=== PATIENT | male | born 1980 | race Caucasian/White ===

== ENCOUNTER 2017-03-13 15:23 | Emergency (ER) | payer OTHER ==
--- NOTE | 2017-03-13 16:42 | EDM.PDOC ---
ED HPI GENERAL MEDICAL PROBLEM - General Chief Complaint: Genitourinary Problem Stated Complaint: GROIN PAIN Time Seen by Provider: 03/13/17 15:52 Source of Information: Reports: Patient, RN Notes Reviewed - History of Present Illness INITIAL COMMENTS - FREE TEXT/NARRATIVE: 36-year-old male comes in with left lower abdominal wall discomfort. He's had this for about 10-14 days. Been working out more at the gym recently and believes he could've suffered strain injury with weight lifting and other exercises that he has been doing. The pain does get better with rest and time but then he'll forget and do something in the pain comes back. Been no bulging or herniation. No nausea vomiting. No fever or chills. Groin Pain Score (Numeric/FACES): 0 - Related Data Allergies Allergy/AdvReac Type Severity Reaction Status Date / Time Penicillins Allergy Unknown Hives Verified 03/13/17 15:46 Home Meds: Home Meds . [No Known Home Meds] 03/13/17 [History] Past Medical History - Past Health History Medical/Surgical History: Denies Medical/Surgical History Social & Family History - Tobacco Use Smoking Status *Q: Current Every Day Smoker Years of Tobacco use: 20 Packs/Tins Daily: 0.5 - Recreational Drug Use Recreational Drug Use: No ED ROS GENERAL - Review of Systems Review Of Systems: See Below Constitutional: Denies: Fever, Chills Respiratory: Denies: Shortness of Breath, Pleuritic Chest Pain Cardiovascular: Denies: Chest Pain GI/Abdominal: Reports: Abdominal Pain (Left lower abdominal wall) Musculoskeletal: Denies: Back Pain, Joint Pain Skin: Reports: No Symptoms Neurological: Reports: No Symptoms ED EXAM, GI/ABD - Physical Exam Exam: See Below General Appearance: Alert, No Apparent Distress Head: Atraumatic Neck: Supple Respiratory/Chest: No Respiratory Distress, Lungs Clear, Normal Breath Sounds Cardiovascular: Normal Peripheral Pulses, Regular Rate, Rhythm GI/Abdominal Exam: Tender (Very minimal tenderness left lower abdomen just above the groin, no bulging palpable or visible) (Male) Exam: No Hernia. No: Scrotal Swelling, Scrotum Tenderness (L) Extremities: Normal Inspection, Normal Range of Motion Neurological: Alert, Oriented Skin Exam: Warm, Dry, Normal Color Course - Vital Signs Last Recorded V/S: Last Vital Signs Temp 98.5 F 03/13/17 15:46 Pulse 87 03/13/17 15:46 Resp 16 03/13/17 15:46 BP 114/77 03/13/17 15:46 Pulse Ox 95 03/13/17 15:46 Departure - Departure Time of Disposition: 16:39 Disposition: Home, Self-Care 01 Condition: Fair Clinical Impression: Strain of abdominal wall Qualifiers: Encounter type: initial encounter Qualified Code(s): S39.011A - Strain of muscle, fascia and tendon of abdomen, initial encounter - Discharge Information Instructions: Abdominal Pain, Adult, [id number] Referrals: PCP,None [Primary Care Provider] - Forms: ED Department Discharge Additional Instructions: Avoid heavy lifting or other physical activity that makes pain worse, Advil or ibuprofen 3-4 times daily as needed for discomfort, see Dr. Owusu later this week or early next week for follow-up evaluation, return to ED as needed if symptoms worsening in any way.
== END 2017-03-13 16:50 | disposition home or self-care (01) ==
LOC: JD.ED 15:23
DX: S39.011A Strain of muscle, fascia and tendon of abdomen, initial encounter (principal); X50.9XXA Other and unspecified overexertion or strenuous movements or postures, initial encounter
CPT/HCPCS: 99282; 99283